=== PATIENT | male | born 1950 | race Caucasian/White ===

== ENCOUNTER 2018-06-01 13:49 | Inpatient (IN) | payer MEDICARE, BC ==
[2018-06-01] MEDS ORDERED: Lorazepam 2 MG/ML VIAL ONE (14:57)
--- NOTE | 2018-06-01 16:24 | CON ---
DATE OF CONSULTATION: 06/01/2018 CHIEF COMPLAINT: Left lower quadrant pain. HISTORY OF PRESENT ILLNESS: This is a 67-year-old transferred from [facility] emergency room with pain in his left lower quadrant, found to have diverticulitis with a small area of perforation and ab scess. His pain is actually improved after IV pain medicine. We do not have the CT for review here was done at an outside institution. Denies known history of diverticulitis. He has had previous nor mal colonoscopies. No family history of colon cancer. PAST MEDICAL HISTORY: Coronary artery disease, hypertension. PAST SURGICAL HISTORY: Cyst on back. MEDICINES: Carvedilol, Plavix, statin, magnesium. ALLERGIES: SULFA. SOCIAL HISTORY: No smoking, alcohol or other drugs. REVIEW OF SYSTEMS: Ten system review of systems is otherwise negative as described above. PHYSICAL EXAMINATION: VITAL SIGNS: Pulse is 80, blood pressure is 135/86, respirations are 12. He is afebrile. HEENT: Sclerae are anicteric. Oropharynx clear. NECK: No lymphadenopathy. CHEST: Clear. HEART: Regular rate and rhythm. ABDOMEN: Soft, tender in the left lower quadrant, localized guarding, no rebound, no abdominal or in guinal hernias. EXTREMITIES: No ischemia or edema to extremities. LABORATORY AND X-RAY FINDINGS: Labs reviewed from outside institution, CT scan, we have the report o nly which says that there is inflammatory change in the left lower quadrant consistent with diverticu litis. There is a 2-cm abscess to the left. No significant free air. ASSESSMENT: Diverticulitis with localized rupture without diffuse peritonitis. PLAN: Admit, IV antibiotics. We will follow with you.
[2018-06-01] MEDS ORDERED: Acetaminophen 1,000 MG in Premix Bag 1 BAG IVPB PRN (17:58)
[2018-06-01] MEDS ORDERED: hydrALAZINE 20 MG/ML VIAL SLOW IVP PRN (17:58)
[2018-06-01] MEDS ORDERED: Morphine 10 MG/ML VIAL SLOW IVP PRN (17:58)
[2018-06-01] MEDS ORDERED: Promethazine HCl 25 MG/ML VIAL IM PRN (17:58)
[2018-06-01] MEDS ORDERED: Dextrose 5% in Water 1,000 ML IV PRN (17:58)
[2018-06-01] MEDS ORDERED: Dextrose 50% Abboject 50 ML SYRINGE SLOW IVP PRN (17:58)
[2018-06-01] MEDS ORDERED: Ondansetron PF 4 MG/2 ML Vial IVP PRN (17:58)
[2018-06-01] MEDS ORDERED: Piperacillin/Tazobactam 4.5 GM in Sodium Chloride 0.9% 100 ML IVPB SCH (18:00)
--- NOTE | 2018-06-01 18:22 | HP ---
PRIMARY CARE PROVIDER: Dr. Angel Khan in [place]. CHIEF COMPLAINT: Abdominal pain. HISTORY OF PRESENT ILLNESS: Mr. Regla Marks is a pleasant 67-year-old gentleman who was seen at [facility] on 06/01/2018. In December and January, he underwent cataract surgery. Following the surgery, he was found to have atrial fibrillation. He had a Holter monitor followed by echocardiography through Dr. Buckley's office. He underwent PCI with stent on 04/12/2018. He reports that he has known diverticulosis. He undergoes colonoscopy every 2 years because of daren porter family history of colon cancer. He returned from hunting trip about 5 days ago. He felt like he pulled a muscle in his belly 4 days ago, he felt was 2 days ago and went to the emergency room. There, he was diagnosed with diverticuli tis. He was started on oral antibiotics and discharged home. He was advised to return to the emerge ncy room if he had any fevers. Today morning, he woke up with a fever. He presented to the emergenc y room at [place] again. From there, he was transferred to [facility]. PAST MEDICAL HISTORY: Gastroesophageal reflux disease, atrial fibrillation, dyslipidemia, and morrow ry artery disease. PAST SURGICAL HISTORY: PCI with XIENCE Yaquelin stent and cyst removal from neck. SOCIAL HISTORY: Occasional alcohol use, no recreational drug use or tobacco use. FAMILY HISTORY: Colon cancer in paternal grandfather, liver cancer in mother and stomach and colon c ancer in father. ALLERGIES: BUTALBITAL and SULFA. CURRENT MEDICATIONS: Aspirin 81 mg daily, Coreg 3.125 mg 2 times a day, Plavix 75 mg daily, pravasta tin 40 mg daily and nitroglycerin p.r.n. PHYSICAL EXAMINATION: GENERAL: Mr. Arauz is awake and alert, not in acute distress. VITAL SIGNS: Blood pressure is 143/80, pulse 75, respiratory rate 18, and oxygen saturation 97% on r oom air. Temperature is 99.4 degrees Fahrenheit. EYES: No scleral icterus. No conjunctival pallor. ENT: Moist mucosal membranes, no oropharyngeal erythema or exudate. NECK: Supple, nontender, trachea is midline. RESPIRATORY: Accessory muscles of breathing are not active. Chest wall movements are symmetric bila terally. LUNGS: Clear to auscultation without wheeze, rhonchi or crepitations. CARDIOVASCULAR: S1 and S2 are heard, regular. Peripheral pulses are palpable. No carotid bruit, no pericardial rub. ABDOMEN: Soft, mild left lower quadrant tenderness, no guarding or rigidity, bowel sounds are heard. NEUROLOGIC: Cranial nerves II-XII are intact. Deep tendon reflexes are 2+. MUSCULOSKELETAL: Power is 5/5 in all 4 extremities. SKIN: No rashes or subcutaneous nodules. LYMPHATIC: No cervical lymphadenopathy. PSYCHIATRIC: Normal mood, normal affect, patient is oriented to person, place, and time. LABORATORY DATA: Mr. Regla Marks's labs and investigations were reviewed. He had CT scan of the abdo men and pelvis with contrast at [place], which showed severe sigmoid diverticulitis with marked wall thickening and pericolonic fat stranding. He has a 2-cm diverticular abscess to the left of the sig moid colon. He also has bilateral renal cysts, likely benign and small bilobed cyst in the head of t he pancreas with mild prominence of the main pancreatic duct. Radiologist recommends further evaluat ion with CT or MRI of the pancreas with pancreatic mass protocol. He has normal sodium, normal potas sium, normal blood urea nitrogen, normal creatinine, unremarkable liver profile except for elevated t otal bilirubin of 1.50, normal lipase, normal white count, normal hemoglobin and normal platelet coun t. ASSESSMENT AND PLAN: Mr. Regla Marks is a pleasant 67-year-old gentleman who was seen at [facility] on 06/01/2018. His problem list includes: 1. Diverticulitis: Mr. Regla Marks is presenting with diverticulitis as well as diverticular abscess . He will be admitted to the hospital for further management. He is being started on Zosyn. [facility] Surgery Service is being consulted for opinion and help with management. 2. Coronary artery disease. We will continue aspirin and Plavix. 3. Hypertension: We will monitor vital signs and titrate antihypertensives as needed. 4. Dyslipidemia: Continue statin. Many thanks for allowing me to participate in your patient's care. Please feel free to contact me wi th any questions or concerns. LEVEL OF RISK: Moderate. LEVEL OF COMPLEXITY: Moderate.
[2018-06-01] MEDS: Piperacillin/Tazobactam 3.375 GM in Sodium Chloride 0.9% 100 ML IVPB SCH (19:05)
[2018-06-01] MEDS: D5 1/2 NS w/20 mEq KCL 1,000 ML IV SCH (19:05)
[2018-06-01] MEDS: Sodium Chloride 0.9% 1,000 ML IV SCH (19:13)
[2018-06-01 20:13] VITALS: BMI 29.4
[2018-06-01] MEDS ORDERED: Carvedilol 3.125 MG TAB PO SCH (20:30)
[2018-06-01] MEDS: Famotidine 20 MG TAB PO SCH (20:44)
[2018-06-01] MEDS: Aspirin 81 mg Enteric Coated Tablet PO SCH (20:44)
[2018-06-01] MEDS: Clopidogrel Bisulfate 75 MG TAB PO SCH (20:44)
[2018-06-01] MEDS: Pravastatin Sodium 40 MG TAB PO SCH (20:45)
[2018-06-01] MEDS: Famotidine/PF 20 mg/2ml Vial SLOW IVP SCH (20:46)
[2018-06-02] MEDS: Piperacillin/Tazobactam 3.375 GM in Sodium Chloride 0.9% 100 ML IVPB SCH ×4 (00:25→18:43)
[2018-06-02] MEDS: Sodium Chloride 0.9% 1,000 ML IV SCH (02:07)
[2018-06-02 04:12] LABS: #Basophils 0.1 thou/uL (0.0-0.2); #Eosinphils 0.3 thou/uL (0.0-0.7); #Lymphocytes 0.9 thou/uL (1.20-3.40); #Monocytes 0.5 thou/uL (0.11-0.59); #Neutrophils 3.6 thou/uL (1.40-6.50); %Basophils 1.4 % (0.0-1.0); %Eosinophils 4.9 % (0.0-10.0); %Neutrophils 66.8 % (42.0-75.0); Hemoglobin 12.3 g/dL (14.0-18.0); Mean Corpuscular HGB CONC 32.3 g/dL (32.0-36.0); Mean Corpuscular Hemoglobin 30.1 pg (27.0-31.0); Mean Corpuscular Volume 93.3 fL (78.0-98.0); Mean Platelet Volume 6.9 fL (7.4-10.4); Platelet Count 204 thou/uL (130-400); Red Blood Cell (RBC) Count 4.09 mill/uL (4.70-6.10); White Blood Cell (WBC) Count 5.4 thou/uL (4.8-10.8)
[2018-06-02 04:32] LABS: Anion Gap 6 mmol/L (10-20); BUN (Urea Nitrogen) 11 mg/dL (8.4-25.7); Calc. Creatinine Clearance 88 mL/min (70-130); Calcium 9.6 mg/dL (7.8-10.44); Carbon Dioxide 31 mmol/L (23-31); Chloride 105 mmol/L (98-107); Estimated GFR-MDRD 67; Glucose 110 mg/dL (80-115); Potassium 4.1 mmol/L (3.5-5.1); Sodium 138 mmol/L (136-145)
[2018-06-02] MEDS: D5 1/2 NS w/20 mEq KCL 1,000 ML IV SCH ×2 (05:14→18:44)
[2018-06-02] MEDS ORDERED: Aspirin 81 mg Enteric Coated Tablet PO SCH (09:00)
[2018-06-02] MEDS ORDERED: Clopidogrel Bisulfate 75 MG TAB PO SCH (09:00)
[2018-06-02] MEDS: Famotidine 20 MG TAB PO SCH ×2 (09:55→20:32)
[2018-06-02] MEDS: Carvedilol 3.125 MG TAB PO SCH ×2 (09:56→17:30)
[2018-06-02] MEDS: Famotidine/PF 20 mg/2ml Vial SLOW IVP SCH ×2 (09:56→20:33)
[2018-06-02] MEDS: Enoxaparin Sodium 40 MG/0.4 ML SYRINGE SC SCH (09:56)
--- NOTE | 2018-06-02 14:26 | PDOC.PN ---
- Subjective Encounter Start Date: 06/02/18 Encounter Start Time: 10:30 Subjective: pt up in bed no complains feels well. tolerating cl - Objective Resuscitation Status: Resuscitation Status FULL:Full Resuscitation Vital Signs & Weight: Vital Signs (12 hours) Temp Pulse Resp BP BP Pulse Ox 06/02/18 11:47 98.1 F 54 L 18 109/71 92 L 06/02/18 08:00 98.4 F 73 18 138/78 97 06/02/18 04:43 98.0 F 60 18 113/67 95 Weight Weight 210 lb 12.8 oz Result Diagrams: 06/02/18 03:33 06/02/18 03:33 Phys Exam - Physical Examination Neck: no nodes, no JVD, supple, full ROM Respiratory: no wheezing, no rales, no rhonchi, wheezing present, clear to auscultation bilateral Cardiovascular: RRR, no significant murmur, no rub, gallop, irregular Gastrointestinal: soft, non-tender, no distention, positive bowel sounds Musculoskeletal: no edema, pulses present, edema present Dx/Plan (1) Diverticulitis of intestine with abscess Code(s): K57.80 - DVTRCLI OF INTEST, PART UNSP, W PERF AND ABSCESS W/O BLEED Status: Acute (2) CAD (coronary artery disease) Code(s): I25.10 - ATHSCL HEART DISEASE OF [place] CORONARY ARTERY W/O ANG PCTRS Status: Acute - Plan pt had ROSSANA to mid LAD on 04/12/2018 would continue ASA/plavix for now -: will continue abx. He is feeling well and tolerating clears. * . Review of Systems - Review of Systems ENT: negative: Ear Pain, Ear Discharge, Nose Pain, Nose Discharge, Nose Congestion, Mouth Pain, Mouth Swelling, Throat Pain, Throat Swelling, Other Respiratory: negative: Cough, Dry, Shortness of Breath, Hemoptysis, SOB with Excertion, Pleuritic Pain, Sputum, Wheezing Cardiovascular: negative: chest pain, palpitations, orthopnea, paroxysmal nocturnal dyspnea, edema, light headedness, other Gastrointestinal: negative: Nausea, Vomiting, Abdominal Pain, Diarrhea, Constipation, Melena, Hematochezia, Other - Medications/Allergies Allergies/Adverse Reactions: Allergies Allergy/AdvReac Type Severity Reaction Status Date / Time butalbital Allergy Hives Verified 02/24/17 12:34 Sulfa (Sulfonamide Allergy Hives Verified 02/24/17 12:34 Antibiotics) Medications: Current Medications Albuterol/Ipratropium (Duoneb) 3 ml NEB Q4H PRN PRN Reason: Wheezing Aspirin (Ecotrin) 81 mg PO HS [facility] Last Admin: 06/01/18 20:44 Dose: Not Given Carvedilol (Coreg) 3.125 mg PO BID-[facility] Last Admin: 06/02/18 09:56 Dose: 3.125 mg Clopidogrel Bisulfate (Plavix) 75 mg PO [facility] Last Admin: 06/01/18 20:44 Dose: Not Given Dextrose/Water (Dextrose 50%) 25 gm SLOW IVP PRN PRN PRN Reason: Hypoglycemia Enoxaparin Sodium (Lovenox) 40 mg SC 0900 [facility] Last Admin: 06/02/18 09:56 Dose: 40 mg Famotidine (Pepcid) 20 mg PO Q12HR [facility] Last Admin: 06/02/18 09:55 Dose: 20 mg Famotidine (Pepcid) 20 mg SLOW IVP Q12HR [facility] Last Admin: 06/02/18 09:56 Dose: Not Given Glucagon (Glucagon) 1 mg IM PRN PRN PRN Reason: Hypoglycemia Hydralazine HCl (Apresoline) 10 mg SLOW IVP Q4H PRN PRN Reason: SBP > 170 or DBP > 100 Acetaminophen 1,000 mg/ Device 100 mls @ 400 mls/hr IVPB Q6H PRN PRN Reason: Fever/Mild Pain Stop: 06/02/18 17:59 Last Admin: 06/01/18 19:12 Dose: 100 mls Potassium Chloride/Dextrose/Sod Cl (D5 1/2 Ns W/20 Meq Kcl) 1,000 mls @ 100 mls /hr IV .Q10H [facility] Last Admin: 06/02/18 05:14 Dose: 1,000 mls Dextrose/Water (D5w) 1,000 mls @ 0 mls/hr IV .Q0M PRN PRN Reason: Hypoglycemia Piperacillin Sod/Tazobactam (Sod 3.375 gm/ Sodium Chloride) 100 mls @ 200 mls/ hr IVPB Q6HR [facility] Last Admin: 06/02/18 05:14 Dose: 100 mls Morphine Sulfate (Morphine) 2 mg SLOW IVP Q2H PRN PRN Reason: Moderate Pain (4-6) Morphine Sulfate (Morphine) 4 mg SLOW IVP Q2H PRN PRN Reason: Severe Pain (7-10) Ondansetron HCl (Zofran) 4 mg IVP Q6H PRN PRN Reason: Nausea/Vomiting Pravastatin Sodium (Pravachol) 40 mg PO HS [facility] Last Admin: 06/01/18 20:45 Dose: 40 mg Promethazine HCl (Phenergan) 12.5 mg IM Q4H PRN PRN Reason: Nausea/Vomiting Sodium Chloride (Flush - Normal Saline) 10 ml IVF PRN PRN PRN Reason: Saline Flush
[2018-06-02] MEDS: Clopidogrel Bisulfate 75 MG TAB PO SCH (15:40)
[2018-06-02] MEDS ORDERED: D5 1/2 NS w/20 mEq KCL 1,000 ML IV SCH (17:45)
--- NOTE | 2018-06-02 17:57 | PRG ---
DATE OF SERVICE: 06/02/2018 SUBJECTIVE: Mr. Arauz feels much better today. His pain is almost gone. He tolerated the clear li quid diet without difficulty. OBJECTIVE: VITALS: Afebrile. Vital signs are stable. ABDOMEN: Soft, nontender, nondistended, only minimal tenderness in the left lower quadrant without g uarding or rebound. LABORATORY DATA: White cell count is 5, hemoglobin 12, platelet count is 204, creatinine is 1.09. ASSESSMENT: Diverticulitis, noncomplicated, responding to Zosyn. PLAN: Continue IV antibiotics tonight. Likely discharge home tomorrow. We will advance to full liquid t. It is okay for him to take his Plavix. He is unlikely to need any surgical procedures.
--- NOTE | 2018-06-02 18:31 | CON ---
DATE OF CONSULTATION: 06/02/2018 REASON FOR CONSULTATION: Diverticulitis. HISTORY OF PRESENT ILLNESS: A 67-year-old patient who has a history of GERD, AFib, coronary artery disease, who developed pain in the left lower quadrant of the abdomen. The patient had a CT done elsewhere and it showed a 2 cm rectosigmoid fluid collection with a likely area of perforation from a diverticulum. The patient has a history of diverticulosis from colonoscopies. He is currently feeling well and is receiving Zosyn. No headaches, visual symptoms, sore throat, odynophagia, or dysphagia. The pain is improved. No vomiting. He is able to eat and drink clear fluid diet for now. Voiding without difficulty. No joint symptoms. Has not had a BM yet. No neurological symptoms. PAST MEDICAL HISTORY: GERD, diverticulosis, AFib, dyslipidemia, coronary artery disease. PAST SURGICAL HISTORY: Percutaneous coronary intervention with stent placement , cyst removal from the neck which was benign. SOCIAL HISTORY: Drinks occasionally. Never a smoker. He is retired. FAMILY HISTORY: Colon cancer, liver cancer, stomach cancer. ALLERGIES: SULFA DRUGS, BUTALBITAL. CURRENT MEDICATIONS: Acetaminophen, albuterol, aspirin, Coreg, Plavix, enoxaparin, hydralazine, Zosyn, promethazine. PHYSICAL EXAMINATION: VITAL SIGNS: Temperature 98.9, blood pressure 109/71, pulse of 54, respirations 18, O2 sat 92%-97%. SKIN: Not remarkable. Patient has a peripheral IV access and is voiding spontaneously. No lymphadenopathy. HEENT: Normal. NECK: Supple. LUNGS: With symmetric clear breath sounds. HEART: S1, S2, regular rate. No S3, S4. ABDOMEN: Soft with mild tenderness left lower quadrant. No ascites. No bladder distention, no organomegaly. EXTREMITIES: No joint inflammatory activity. His pulses are 2+ in dorsalis pedis. He moves all extremities equally. Cognitive function appears to be intact. LABORATORY DATA: White cell count 5.4, hemoglobin 12.3, platelets 204, 66% neutrophils. Chemistry was fairly remarkable. A CT scan was done elsewhere and it showed a 2 cm fluid collection in left lower quadrant associated with the sigmoid area of inflammation. ASSESSMENT: Sigmoid diverticulitis with small area of perforation with a small abscess. This represents Hinchey stage I diverticular inflammatory process. DISCUSSION: This type of early diverticulitis can be managed with oral antimicrobials in the outpatient setting, probably could be discharged tomorrow on oral Cipro and Flagyl, there is a risk of recrudescence in view of the possibility of resistant pathogens and will have to be closely monitored for the next few weeks. The likelihood of resolution is high and after that then the likelihood of recrudescence is around 13% in 12 months. If there is persistence of recrudescence of inflammatory process, then he will need to reimage the area, CT with contrast and transition to intravenous antimicrobial therapy assuming a resistant pathogen. NICK
[2018-06-02] MEDS: Pravastatin Sodium 40 MG TAB PO SCH (20:32)
[2018-06-02] MEDS: Aspirin 81 mg Enteric Coated Tablet PO SCH (20:32)
[2018-06-03] MEDS: Piperacillin/Tazobactam 3.375 GM in Sodium Chloride 0.9% 100 ML IVPB SCH ×3 (00:41→12:01)
[2018-06-03 04:43] LABS: #Eosinphils 0.3 thou/uL (0.0-0.7); #Lymphocytes 0.9 thou/uL (1.20-3.40); #Monocytes 0.3 thou/uL (0.11-0.59); #Neutrophils 2.1 thou/uL (1.40-6.50); %Basophils 0.1 % (0.0-1.0); %Eosinophils 7.1 % (0.0-10.0); %Lymphocytes 24.9 % (21.0-51.0); %Monocytes 9.6 % (0.0-10.0); %Neutrophils 58.3 % (42.0-75.0); Hemoglobin 12.3 g/dL (14.0-18.0); Mean Corpuscular HGB CONC 32.8 g/dL (32.0-36.0); Mean Corpuscular Volume 91.5 fL (78.0-98.0); Mean Platelet Volume 6.8 fL (7.4-10.4); Platelet Count 211 thou/uL (130-400); RBC Distribution Width 11.9 % (11.5-14.5); Red Blood Cell (RBC) Count 4.08 mill/uL (4.70-6.10); White Blood Cell (WBC) Count 3.6 thou/uL (4.8-10.8)
[2018-06-03 04:52] LABS: Anion Gap 10 mmol/L (10-20); BUN (Urea Nitrogen) 7 mg/dL (8.4-25.7); Calc. Creatinine Clearance 88 mL/min (70-130); Calcium 9.7 mg/dL (7.8-10.44); Carbon Dioxide 26 mmol/L (23-31); Chloride 109 mmol/L (98-107); Estimated GFR-MDRD 67; Glucose 102 mg/dL (80-115); Potassium 3.9 mmol/L (3.5-5.1); Sodium 141 mmol/L (136-145)
[2018-06-03] MEDS: Enoxaparin Sodium 40 MG/0.4 ML SYRINGE SC SCH (07:55)
[2018-06-03] MEDS: Carvedilol 3.125 MG TAB PO SCH (07:55)
[2018-06-03] MEDS: Famotidine/PF 20 mg/2ml Vial SLOW IVP SCH (07:56)
[2018-06-03] MEDS: Famotidine 20 MG TAB PO SCH (07:57)
[2018-06-03] MEDS ORDERED: Clopidogrel Bisulfate 75 MG TAB PO SCH (09:00)
--- NOTE | 2018-06-03 14:35 | PRG ---
DATE OF SERVICE: 06/03/2018 SUBJECTIVE: Mr. Arauz is doing well. He is tolerating the full liquids. No fevers. He has minima l abdominal pain. PHYSICAL EXAMINATION: VITAL SIGNS: He is afebrile. Vital signs are stable. ABDOMEN: Soft, minimally tender in the left lower quadrant. Dr. Patterson saw him and recommended conversion to outpatient care. ASSESSMENT: Acute diverticulitis, localized rupture, but contained, even small abscess on sigmoid co abelino, but clinically better. PLAN: Home on Cipro and Flagyl. Follow up with me in 2 weeks.
[2018-06-03 15:58] VITALS: BP 130/86; TEMP 97.8
--- NOTE | 2018-06-03 22:31 | DIS ---
DATE OF ADMISSION: 06/01/2018 DATE OF DISCHARGE: 06/03/2018 DISCHARGE DIAGNOSES: As of the followin. Diverticulitis with intestinal wall abscess. 2. Coronary artery disease. HOSPITAL COURSE: The patient is a very pleasant 67-year-old male who initially presented to the [facility] on 06/01/2018 with complaints of fever and chills. The patient, a few days prior to that, was d iagnosed with diverticulitis and was put on oral antibiotics and was told to come in to the hospital if he starts having fevers. The patient had a CT scan done at [place], which indicated a severe sig moid diverticulitis with marked wall thickening of pericolonic fat strand and had a 2 cm diverticular abscess to the left of the sigmoid colon. I do not actually have the CT scan with me, this is throu gh his previous H&P. The patient was seen by Surgery and patient was treated with IV antibiotics and initially he was placed on n.p.o. and was given gentle hydration. The patient continued to improve. He was not taken to surgery. No surgery was indicated. The patient has been doing well. He had a bowel movement. His diet will be increased to a soft diet and also he will take oral antibiotics wi th Cipro and Flagyl for 10 days. He will follow up with Surgery as outpatient. The patient has been seen and examined today. No changes from previous examination. DISCHARGE MEDICATIONS: The patient's medications will be as of the following: He is going to contin ue his aspirin in the morning or in the evening and Plavix, carvedilol 3.125 b.i.d., omeprazole 20 mg daily, pravastatin 40 mg daily, Cipro 500 mg b.i.d. and Flagyl 500 mg q.8 hours. FOLLOWUP: Again, he will follow up with his primary care doctor and also with Surgery as outpatient. He was also seen by Dr. Patterson, Infectious Disease, who recommended to transition to Cipro, Flagyl, and also follow up with Surgery for reimaging to make sure that has resolved.
== END 2018-06-03 17:13 | disposition home or self-care (01) | DRG 392 ==
LOC: ERS 13:49 → ERHOLD 15:38 → T4-B 17:55
PROVIDERS: ADMIT Internal Medicine; ATTEND Internal Medicine
DX: K57.20 Diverticulitis of large intestine with perforation and abscess without bleeding (principal); I25.10 Atherosclerotic heart disease of native coronary artery without angina pectoris; I48.91 Unspecified atrial fibrillation; K21.9 Gastro-esophageal reflux disease without esophagitis; E78.5 Hyperlipidemia, unspecified; Z95.5 Presence of coronary angioplasty implant and graft; Z80.0 Family history of malignant neoplasm of digestive organs; Z79.02 Long term (current) use of antithrombotics/antiplatelets; Z79.82 Long term (current) use of aspirin; Z88.2 Allergy status to sulfonamides; Z88.8 Allergy status to other drugs, medicaments and biological substances
CPT/HCPCS: 36415; 80048; 85025; 87040; 96374; J0131; J1650; J2060; J2543; J7050; S0028

== ENCOUNTER 2018-08-13 14:54 | Observation (INO) | payer MEDICARE, BC ==
[2018-08-13 16:26] LABS: #Eosinphils 0.2 thou/uL (0.0-0.7); #Lymphocytes 1.1 thou/uL (1.20-3.40); #Monocytes 0.5 thou/uL (0.11-0.59); #Neutrophils 5.7 thou/uL (1.40-6.50); %Basophils 0.4 % (0.0-1.0); %Eosinophils 2.5 % (0.0-10.0); %Lymphocytes 14.5 % (21.0-51.0); %Monocytes 6.4 % (0.0-10.0); %Neutrophils 76.1 % (42.0-75.0); Hemoglobin 13.7 g/dL (14.0-18.0); Mean Corpuscular HGB CONC 33.3 g/dL (32.0-36.0); Mean Corpuscular Hemoglobin 30.3 pg (27.0-31.0); Mean Platelet Volume 7.2 fL (7.4-10.4); Platelet Count 218 thou/uL (130-400); RBC Distribution Width 12.5 % (11.5-14.5); Red Blood Cell (RBC) Count 4.54 mill/uL (4.70-6.10); White Blood Cell (WBC) Count 7.4 thou/uL (4.8-10.8)
[2018-08-13 16:36] LABS: PTT 28.6 SEC (22.9-36.1); Prothrombin Time 13.3 SEC (12.0-14.7)
[2018-08-13 16:47] LABS: ALT (SGPT) 19 U/L (8-55); AST (SGOT) 17 U/L (5-34); Albumin 4.2 g/dL (3.4-4.8); Alkaline Phosphatase 42 U/L (40-150); Anion Gap 12 mmol/L (10-20); BUN (Urea Nitrogen) 15 mg/dL (8.4-25.7); Bilirubin, Total 0.8 mg/dL (0.2-1.2); Calc. Creatinine Clearance 0 mL/min (70-130); Carbon Dioxide 22 mmol/L (23-31); Chloride 109 mmol/L (98-107); Estimated GFR-MDRD 67; Globulin 2.3 g/dL (2.4-3.5); Glucose 117 mg/dL (80-115); Protein, Total 6.5 g/dL (5.8-8.1); Sodium 139 mmol/L (136-145)
[2018-08-13] MEDS ORDERED: Lactated Ringer's 1,000 ML IV SCH ×2 (19:30→20:49)
[2018-08-13 19:47] LABS: Hemoglobin 12.9 g/dL (14.0-18.0); Platelet Count 203 thou/uL (130-400)
[2018-08-13] MEDS ORDERED: Acetaminophen 325 MG TAB PO PRN (21:00)
[2018-08-13] MEDS ORDERED: Nitroglycerin 0.4 MG TAB (25 Tab Bottle) SL PRN (21:02)
[2018-08-13] MEDS ORDERED: Polyethylene Glycol 3350 17 GM Packet PO SCH (21:15)
[2018-08-13] MEDS ORDERED: Pravastatin Sodium 40 MG TAB PO SCH (21:15)
--- NOTE | 2018-08-13 21:35 | HP ---
PRIMARY CARE PROVIDERS: Dr. Khan in [place]. CHIEF COMPLAINT: Bright red blood per rectum. HISTORY OF PRESENT ILLNESS: This is a 67-year-old male on dual anti-platelet therapy with history of cardiac stent in March 2018, hospitalization here for diverticulitis and intestinal wall abscess in May 2018, dyslipidemia, and GERD, who presents to the emergency room with a complaint of bright red blood per rectum. The patient reports history of constipation, and he took a dose of MiraLAX yesterday to help with this. Today around 9:00 or 10:00 am, he had a hard bowel movement, followed up around 2:00 pm with passing bright red blood in addition to stool. He had 2 episodes at home, then presented to the emergency room. Since that time, he has had 4 further episodes of grossly bloody stool in the emergency room and 1 on the floor. He denies any prior history of this, denies any pain, denies any fevers or chills, denies any bleeding from any other location. His last bowel movement was 2 days prior and he reports they tend to be hard. He has used MiraLAX approximately 4 times over the prior 3 weeks. He reports that the diverticulitis and abscess have completely resolved. His last colonoscopy was in October of 2017, and he reports these are done every 2 years due to a family history of colon cancer as well as polyps. The patient denies any lightheadedness or dizziness, denies any precipitating or relieving factors. He does note that the time interval has been increasing between passing of bloody stools. In the emergency room, the patient was started on lactated Ringer's and hospitalist called for admission. ALLERGIES: ALLERGIES TO MEDICINE ARE BUTALBITAL AND SULFA. CURRENT MEDICATIONS: Reconciled with the patient. 1. Aspirin 81 mg daily. 2. Carvedilol 3.125 mg b.i.d. 3. Plavix 75 mg daily. 4. Pravastatin 40 mg at bedtime. 5. Nitroglycerin 0.4 mg as needed. PAST MEDICAL HISTORY: 1. Coronary artery disease with stent placement in March of 2018. 2. Diverticulitis and intestinal wall abscess with hospitalization in May 2018, here. 3. GERD. 4. Dyslipidemia. PAST SURGICAL HISTORY: 1. Coronary artery stent in March 2018. The patient reports need for dual anti-platelet therapy for one year. 2. Cyst removal from his neck. SOCIAL HISTORY: He lives with his , Telma, who is his surrogate decision maker. Denies tobacco and rarely uses alcohol. He is a full code. FAMILY HISTORY: Significant for colon cancer, liver cancer, and stomach and colon cancer. REVIEW OF SYSTEMS: Negative for fevers, chills, nausea, vomiting, abdominal pain, rectal pain, lightheadedness, dizziness, chest pain, or other bleeding problems. All remaining review of systems are reviewed and negative. PHYSICAL EXAMINATION: VITAL SIGNS: Blood pressure 117/72, pulse 55, temp 98.1, respirations 15, sats 95% on room air. GENERAL: Awake, alert, responsive, in no apparent distress. Able to speak in full sentences. HEENT: Pupils are equal and round. Oral mucosa is pink and moist. NECK: Supple, nontender. LYMPHATICS: No palpable cervical or supraclavicular lymphadenopathy. LUNGS: Clear to auscultation bilateral. No audible wheezing, rhonchi, or rales. HEART: Normal S1, S2. Regular rate and rhythm. No audible murmurs. ABDOMEN: Soft, present bowel sounds. Nontender, nondistended. EXTREMITIES: No clubbing, cyanosis, or edema. NEURO: No gross deficits. PSYCH: Euthymic, good eye contact. Appears stated age. SKIN: No visible rashes. LABORATORY DATA: Reviewed. CBC; 7.4, 13.7, 41.3, 218 at 16:05 and 3 hours later, hemoglobin 12.9. His INR 1.0. Chemistry; 139, 4.0, 109, 22, 15, 1.1, 117. LFTs normal. IMPRESSION: 1. Bright red blood per rectum in a patient with known diverticula, as well as constipation. Differential diagnosis includes internal hemorrhoids as well as diverticular bleed. 2. Anemia secondary to above 3. Coronary artery disease with recent stent placement, on dual anti-platelet therapy. 4. Dyslipidemia. 5. Gastroesophageal reflux disease. PLAN: 1. Observation status in the hospital. 2. Serial monitoring of H and H as well as monitoring for symptoms and the amount of blood being passed. 3. We will do another dose of MiraLAX with the goal of soft stools, and have on a clear liquid diet. GI consultation in the morning. 4. Temporarily hold aspirin and Plavix due to the active bleeding. 5. Continue carvedilol with hold parameters as well as pravastatin. 6. Transfusion consent. The patient is agreeable to emergency blood transfusion if needed and he has been typed and screened. 7. Anticipated length of stay will be based on hemodynamic stability, evolution of the bleeding, and any other hospital events. Anticipate he will be here for a minimum of 24 hours, and possibly longer. 8. DVT prophylaxis. The patient is ambulatory. 9. GI prophylaxis, not indicated. 10. Code status is full. 11. Surrogate decision maker is his . 12. The patient is at high risk given age comorbidities and current presentation. 13. Reviewed the plan of care with the patient. No questions or further needs at the end of evaluation. Job ID: [id number] MTDD
[2018-08-13 21:48] VITALS: BMI 28.7
--- NOTE | 2018-08-13 23:27 | PDOC.EVN ---
Event Note - Event Note Event Note: RN called - SBP in 90s. Will increase IVF.
[2018-08-13] MEDS: Lactated Ringer's 1,000 ML IV SCH (23:38)
[2018-08-14 01:25] LABS: Hemoglobin 11.1 g/dL (14.0-18.0); Platelet Count 186 thou/uL (130-400)
[2018-08-14] MEDS: Lactated Ringer's 1,000 ML IV SCH (03:25)
[2018-08-14 08:44] LABS: Hemoglobin 11.6 g/dL (14.0-18.0); Platelet Count 204 thou/uL (130-400)
[2018-08-14 08:57] LABS: Anion Gap 8 mmol/L (10-20); BUN (Urea Nitrogen) 13 mg/dL (8.4-25.7); Calc. Creatinine Clearance 98 mL/min (70-130); Carbon Dioxide 28 mmol/L (23-31); Chloride 109 mmol/L (98-107); Estimated GFR-MDRD 79; Glucose 88 mg/dL (80-115); Magnesium 2.2 mg/dL (1.6-2.6); Potassium 3.9 mmol/L (3.5-5.1); Sodium 141 mmol/L (136-145)
[2018-08-14] MEDS ORDERED: Carvedilol 3.125 MG TAB PO SCH (09:00)
[2018-08-14] MEDS ORDERED: Prevnar 13-Val Conj/PF 0.5 ML SYRINGE IM ONE (09:00)
--- NOTE | 2018-08-14 10:31 | CON ---
DATE OF CONSULTATION: 08/14/2018 This is GI inpatient consultation note. REASON FOR CONSULTATION: Lower GI bleeding. HISTORY OF PRESENT ILLNESS: Elan Arauz is a very pleasant 67-year-old gentleman with a history of coronary artery disease and stent placement fairly recently in March 2018. 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 His last colonoscopy was in October 2017. He says he had 1 small polyp removed and diverticulosis noted as well as hemorrhoids. More recently, in May 2018, he was hospitalized here with diverticulitis and imaging showing a small abscess in the sigmoid colon. This was treated conservatively with antibiotics and the symptoms all completely resolved. The patient does take aspirin and Plavix. Yesterday in the morning, he was feeling a bit constipated, having to strain to defecate. He took some MiraLAX. Shortly thereafter, he had a bowel movement with a large amount of bright red blood. This became recurrent, he had 7 episodes of bright red blood per rectum throughout the course of the day yesterday. There was really no associated abdominal discomfort with this, just feeling of gassiness in the lower abdomen. No nausea or vomiting. He did start getting a bit lightheaded and so presented for evaluation. He has remained hemodynamically stable since admission last night. His hemoglobin was initially 13.7 and did drop to 11.1 yesterday evening, but repeat hemoglobin this morning shows stabilization to 11.6. His last bloody bowel movement was about 10 hours ago at 11 p.m. last night. He is otherwise feeling very well. REVIEW OF SYSTEMS: Full review of systems including constitutional, head, eyes, ears, nose, throat, GI, , cardiovascular, respiratory, musculoskeletal, and neurologic systems are negative except as noted in the HPI. PAST MEDICAL HISTORY: 1. Coronary artery disease with stent placement in March 2018. 2. Diverticulitis with small sigmoid abscess in May 2018, managed conservatively with antibiotics and symptom resolution. 3. GERD. 4. Hyperlipidemia. 5. Cyst removal from his neck. ALLERGIES: BUTALBITAL AND SULFA. OUTPATIENT MEDICATIONS: 1. Aspirin 81 mg daily. 2. Carvedilol 3.125 mg b.i.d. 3. Plavix 75 mg daily. 4. Pravastatin 40 mg at bedtime. 5. Nitroglycerin 0.4 mg as needed. SOCIAL HISTORY: The patient lives with his . Alcohol use is rare. No tobacco abuse. FAMILY HISTORY: Significant for colon cancer in his paternal grandfather, stomach and lung cancer in his father, and liver cancer in his mother. PHYSICAL EXAMINATION: VITAL SIGNS: Temperature 98.2, pulse 58, blood pressure 112/67, and 93% oxygen saturation on room air. GENERAL: A 67-year-old man sitting up in bed comfortably, in no distress. SKIN: No jaundice. No rashes were palpable. EYES: No scleral icterus. Extraocular movements intact. ENT: Mucous membranes moist. No oral lesions. LYMPH: No submandibular or supraclavicular lymphadenopathy. THYROID: Nontender to palpation. HEART: Regular rate and rhythm. LUNGS: Clear to auscultation bilaterally. ABDOMEN: Bowel sounds present. Soft and nontender to palpation throughout. No masses or organomegaly appreciated. EXTREMITIES: No peripheral edema. VESSELS: Radial pulses 2+ bilaterally NEUROLOGIC: Cranial nerves 2 through 12 intact bilaterally. No focal deficits. LABORATORY STUDIES: Hemoglobin initially 13.7, dropped to 11.1, but now stabilized at 11.6; hematocrit is 34.9; WBC 7.4; and platelets 204. INR 1.0. Sodium 141, potassium 3.9, BUN 13, and creatinine 0.95. LFTs all normal with total bilirubin 0.8, alkaline phosphatase 42, AST 17, ALT 19, and albumin 4.2. ASSESSMENT AND PLAN: 1. Lower gastrointestinal bleeding, likely diverticular in origin, appears to have resolved this morning. 2. Acute blood loss anemia, stabilized out on this morning's lab draw. 3. Coronary artery disease with recent stent placement on dual anti-platelet therapy with aspirin and Plavix. I had a long discussion with the patient and his regarding this presentation, it seems most consistent with a likely self-limited diverticular bleed. It has been about 10 hours since his last bloody stool and his hemoglobin is stabilized this morning. I do expect his next few bowel movements will still have some old blood. Also, consider possibility of hemorrhoidal bleeding, but this really seems like too much blood for that. He has had colonoscopies frequently including 1 within the past year, so other sources are far less likely. Given his clinical stability and the fact that it seems his bleed has resolved, I think we have options here. Our plan will be to recheck his H and H early this afternoon to assure continued stability, see how he does over the next several hours and assure no evidence of recurrent overt bleeding. If he is doing well this afternoon and it appears the bleeding has not recurred, I think he could actually be safely discharged from the hospital, back on his aspirin and Plavix. If we are concerned about possible persistent bleeding this afternoon, then I would keep him overnight 1 more night with bowel preparation and colonoscopy tomorrow. We will reassess this afternoon. Thank you for the consultation. Please call back anytime with questions or concerns. Job ID: [id number]
--- NOTE | 2018-08-14 11:02 | PDOC.PN ---
- Subjective Encounter Start Date: 08/14/18 (f/u GI bleed) Encounter Start Time: 11:00 Subjective: Pt lightheaded overnight with low blood pressure. Denies any sx now -: some lower abd tenderness, denies n/v. - Objective Resuscitation Status - Order Detail: 08/13/18 21:00 Resuscitation Status Routine Resuscitation Status: FULL: Full Resuscitation Vital Signs & Weight: Vital Signs (12 hours) Temp Pulse Resp BP BP BP BP 08/14/18 07:43 98.2 F 58 L 16 112/67 105/61 98/53 L 08/14/18 04:19 98.3 F 53 L 16 103/64 08/14/18 02:09 90 82/40 L 08/14/18 02:08 80 105/55 L 08/14/18 02:07 98.1 F 65 16 107/69 08/13/18 23:28 68 115/64 08/13/18 23:12 98.0 F 73 16 90/52 L Pulse Ox 08/14/18 07:43 93 L 08/14/18 04:19 96 08/14/18 02:09 96 08/14/18 02:08 95 08/14/18 02:07 93 L 08/13/18 23:28 08/13/18 23:12 97 Weight Weight 205 lb 11.2 oz I&O: 08/13/18 08/14/18 08/15/18 06:59 06:59 06:59 Intake Total 2160 Output Total 500 Balance 2160 -500 Result Diagrams: 08/14/18 07:51 08/14/18 07:51 Phys Exam - Physical Examination Constitutional: NAD Respiratory: no wheezing, no rales, no rhonchi, clear to auscultation bilateral Cardiovascular: RRR, no significant murmur Gastrointestinal: soft, non-tender, no distention, positive bowel sounds Musculoskeletal: no edema Neurological: non-focal, moves all 4 limbs Skin: no rash Dx/Plan (1) Lower GI bleed Code(s): K92.2 - GASTROINTESTINAL HEMORRHAGE, UNSPECIFIED Status: Acute (2) Diverticulosis Code(s): K57.90 - DVRTCLOS OF INTEST, PART UNSP, W/O PERF OR ABSCESS W/O BLEED Status: Acute Qualifiers: Diverticulosis bleeding: diverticulosis with bleeding (3) Anemia Code(s): D64.9 - ANEMIA, UNSPECIFIED Status: Acute Qualifiers: Other causes of anemia: acute posthemorrhagic (4) Dyslipidemia Code(s): E78.5 - HYPERLIPIDEMIA, UNSPECIFIED Status: Chronic (5) GERD (gastroesophageal reflux disease) Code(s): K21.9 - GASTRO-ESOPHAGEAL REFLUX DISEASE WITHOUT ESOPHAGITIS Status: Chronic Qualifiers: Esophagitis presence: esophagitis presence not specified Qualified Code(s) : K21.9 - Gastro-esophageal reflux disease without esophagitis (6) CAD (coronary artery disease) Code(s): I25.10 - ATHSCL HEART DISEASE OF [place] CORONARY ARTERY W/O ANG PCTRS Status: Acute - Plan * Overall doing well - no BM's this morning - advance to full liquid diet * Appreciate GI evaluation - recheck Hb this afternoon and monitor for further bm's * d/c IVF and check orthostatics this afternoon * cont hold parameters with carvedilol * * if no further bleeding, pt feeling well and bp normal - anticipate d/c to home this afternoon * * dvt prophy - scd's * gi prophy - not indicated * code status full * * reviewed plan of care wiht pt/, no questions or further needs at end of eval * pt remains at high risk in current condition.
[2018-08-14 13:19] VITALS: TEMP 97.7
[2018-08-14 13:31] VITALS: BP 111/63
[2018-08-14 14:18] LABS: Hemoglobin 11.3 g/dL (14.0-18.0); Platelet Count 193 thou/uL (130-400)
[2018-08-14] MEDS ORDERED: Pravastatin Sodium 40 MG TAB PO SCH (21:00)
--- NOTE | 2018-08-15 07:23 | DIS ---
DATE OF ADMISSION: 08/13/2018 DATE OF DISCHARGE: 08/14/2018 CONSULTANTS: Dr. Lin of Gastroenterology. MEDICATIONS: Medications are reconciled at discharge and unchanged compared to admission. 1. Aspirin 81 mg at night. 2. Carvedilol 3.125 mg b.i.d. 3. Clopidogrel 75 mg daily. 4. Pravastatin 40 mg at bedtime. 5. Nitroglycerin as needed. New medication, MiraLAX once daily for few days to ensure soft stools and then as needed. FINAL DIAGNOSIS: 1. Lower gastrointestinal bleed, likely diverticular in origin, resolved. 2. Anemia secondary to above, mild. SECONDARY DIAGNOSES: 1. Coronary artery disease with history of stent placement in March 2018. 2. History of diverticulitis and intestinal wall abscess in May 2018. 3. Gastroesophageal reflux disease. 4. Dyslipidemia. HISTORY OF PRESENT ILLNESS: Mr. Arauz is a 67-year-old male with the above medical problems, who presented to the emergency room with bright red blood per rectum. He had 2 episodes at home, no precipitating or relieving factors, and no prior history. For this, he was placed in observation status in the hospital for further evaluation. HOSPITAL COURSE: The patient continued to pass bright red blood per rectum. However, it has slowed down, and on day of discharge, it has resolved. He overnight had some lightheadedness and dizziness and orthostatically positive. He had an increase in his IV fluids which were discontinued this morning and these symptoms have resolved. He was evaluated by Dr. Lin of Gastroenterology with recommendation for monitoring and conservative care. Because the patient's hemoglobin has remained stable, his most recent colonoscopy was reported in October of 2017, there was no indication for inpatient colonoscopy. Given the resolution of symptoms, the patient does meet criteria for discharge to home, with followup through Dr. Lin in a few weeks. The patient is overall feeling well, ambulating without difficulty, does meet criteria for discharge to home. He is aware that this may happen again, and if so to present to the emergency department for further evaluation. Should this occur again, colonoscopy will be considered by GI. The patient is on dual anti-platelet therapy secondary to a stent placed back in March of 2018. One dose of aspirin and one dose of Plavix were held, following the amount of bleeding which has resolved. He will resume both medications starting tonight with the aspirin and tomorrow with clopidogrel. He will follow up with Cardiology as previously indicated. PHYSICAL EXAMINATION: On day of discharge, please see note on chart from today. LARIOS FINDINGS AND TEST RESULTS: CBC on admission; 7.4, 13.7, 41.3. 218, hemoglobin on discharge 11.3. INR 1.0. Chemistry; 141, 3.9,109, 28, 13, 0.95, and 88. LFTs are normal. DIET: Diet is a low-fiber diet for now, transitioning back in a few days to a heart healthy diet. ACTIVITY: As tolerated. Reviewed with the patient this hospitalization, concerns that this may occur in the future, followup instructions, and seek care precautions. He demonstrates understanding. Total time coordinating discharge is 30 minutes. Job ID: [id number] MTDD
== END 2018-08-14 16:18 | disposition home or self-care (01) ==
LOC: ERS 14:54 → ERHOLD 17:12 → 2SW 18:44
PROVIDERS: ADMIT Family Medicine; ATTEND Family Medicine
DX: K57.31 Diverticulosis of large intestine without perforation or abscess with bleeding (principal); D50.0 Iron deficiency anemia secondary to blood loss (chronic); I25.10 Atherosclerotic heart disease of native coronary artery without angina pectoris; K59.00 Constipation, unspecified; K21.9 Gastro-esophageal reflux disease without esophagitis; E78.5 Hyperlipidemia, unspecified; Z86.010 Personal history of colon polyps; Z79.02 Long term (current) use of antithrombotics/antiplatelets; Z79.82 Long term (current) use of aspirin; Z79.899 Other long term (current) drug therapy; Z88.2 Allergy status to sulfonamides; Z88.8 Allergy status to other drugs, medicaments and biological substances; Z80.0 Family history of malignant neoplasm of digestive organs; Z95.5 Presence of coronary angioplasty implant and graft
CPT/HCPCS: 80048; 80053; 83735; 85014 ×2; 85018 ×2; 85025; 85049 ×2; 85610; 85730; 86850; 86900; 86901; 96360; 96361 ×2; 99285; G0378 ×2; 36415

== ENCOUNTER 2019-07-26 09:35 | Day surgery (SDC) | payer MEDICARE, BC ==
[2019-07-25 11:05] VITALS: BMI 30.7
[2019-07-26] MEDS ORDERED: Dexamethasone 20 MG/5 ML VIAL ONE (10:12)
[2019-07-26] MEDS ORDERED: Glycopyrrolate 0.2 MG/ML 5 ML SYRINGE ONE (10:12)
[2019-07-26] MEDS ORDERED: PROPOFOL 200 MG/20 ML VIAL ONE (10:12)
[2019-07-26] MEDS ORDERED: Lidocaine 1% PF 5 ML VIAL ONE (10:12)
[2019-07-26] MEDS ORDERED: Ondansetron PF 4 MG/2 ML Vial ONE (10:12)
[2019-07-26] MEDS ORDERED: Rocuronium Bromide 10 MG/ML (10ML VIAL) ONE (10:12)
[2019-07-26 10:39] LABS: #Eosinphils 0.2 thou/uL (0.0-0.7); #Lymphocytes 1.5 thou/uL (1.20-3.40); #Monocytes 0.5 thou/uL (0.11-0.59); #Neutrophils 2.4 thou/uL (1.40-6.50); %Basophils 0.8 % (0.0-1.0); %Eosinophils 3.9 % (0.0-10.0); %Lymphocytes 33.3 % (21.0-51.0); %Monocytes 9.8 % (0.0-10.0); %Neutrophils 52.3 % (42.0-75.0); Hemoglobin 14.2 g/dL (14.0-18.0); Mean Corpuscular HGB CONC 33.4 g/dL (32.0-36.0); Mean Corpuscular Hemoglobin 30.5 pg (27.0-31.0); Mean Corpuscular Volume 91.3 fL (78.0-98.0); Platelet Count 179 thou/uL (130-400); Red Blood Cell (RBC) Count 4.67 mill/uL (4.70-6.10); White Blood Cell (WBC) Count 4.6 thou/uL (4.8-10.8)
[2019-07-26 10:54] LABS: Anion Gap 7 mmol/L (10-20); BUN (Urea Nitrogen) 11 mg/dL (8.4-25.7); Calc. Creatinine Clearance 89 mL/min (70-130); Calcium 10.7 mg/dL (7.8-10.44); Carbon Dioxide 30 mmol/L (23-31); Chloride 107 mmol/L (98-107); Estimated GFR-MDRD 66; Glucose 105 mg/dL (80-115); Potassium 4.3 mmol/L (3.5-5.1); Sodium 140 mmol/L (136-145)
[2019-07-26] MEDS ORDERED: Lidocaine 2% Jelly 5 ML TUBE ONE (11:55)
[2019-07-26] MEDS ORDERED: Fentanyl 100 MCG/2 ML VIAL ONE ×2 (11:55→14:03)
[2019-07-26] MEDS ORDERED: Bupivacaine 0.25% HCL 30 ML VIAL ONE (12:32)
[2019-07-26] MEDS ORDERED: HYDROcodone/Acetaminophen 5/325 mg Tablet ONE (15:30)
--- NOTE | 2019-07-26 16:33 | OP ---
DATE OF PROCEDURE: 07/26/2019 PREOPERATIVE DIAGNOSES: 1. Skin cyst, suprapubic, 2 cm. 2. Skin cyst, 3 cm, mid back. PROCEDURES PERFORMED: 1. Excision of skin cyst, suprapubic, with no margin. 2. Removal of 3 cm skin cyst, back, with no additional margin. ANESTHESIA: General. ESTIMATED BLOOD LOSS: Minimal. COMPLICATIONS: None. SPECIMEN: Suprapubic cyst and back cyst. DESCRIPTION OF PROCEDURE: The patient was taken to the operating room and laid supine on the operating room table. After general anesthetic was obtained, suprapubic region was shaved, prepped, and draped in a sterile fashion. An elliptical incision was used to ellipse out skin over top of the palpable cyst in the suprapubic region. The cyst was removed and it was entirely intact without additional margin. The wound was irrigated and closed using 3-0 Vicryl, 4-0 Monocryl, and Dermabond. Next, the patient was placed in left lateral decubitus position and an elliptical incision was made on the back and a 3 cm cyst was removed with a 3 cm incision wide and 9 cm long incision. The cyst was removed with no additional margin, sent to Path for final diagnosis. The wound was irrigated. Meticulous hemostasis obtained. The wound was closed using 3-0 Vicryl, 4-0 Monocryl, and Dermabond. The patient was sent to Recovery in stable condition. All instrument counts, needle counts, and lap counts were correct. Job ID: [id number]
== END 2019-07-26 15:45 | disposition home or self-care (01) ==
LOC: SDC 09:35
PROVIDERS: ATTEND Surgery
PROC: 0HB7XZZ Excision of Abdomen Skin, External Approach (ICD-10-PCS; principal; 2019-07-26)
PROC: 0HB6XZZ Excision of Back Skin, External Approach (ICD-10-PCS; 2019-07-26)
DX: L72.0 Epidermal cyst (principal); Z79.02 Long term (current) use of antithrombotics/antiplatelets; Z79.899 Other long term (current) drug therapy; Z88.2 Allergy status to sulfonamides; Z88.8 Allergy status to other drugs, medicaments and biological substances
CPT/HCPCS: 36415; 80048; 85025; 88304; J0690; J1100; J2001; J2405; J2704; J3010; S0020

== ENCOUNTER 2021-08-13 14:23 | Outpatient (CLI) | payer MEDICARE | END 2021-08-13 14:24 | disposition home or self-care (01) | LOC: SCSMRI 14:23 | PROVIDERS: ATTEND Specialist | DX: M51.17 Intervertebral disc disorders with radiculopathy, lumbosacral region (principal); M43.16 Spondylolisthesis, lumbar region; M48.061 Spinal stenosis, lumbar region without neurogenic claudication; Q76.49 Other congenital malformations of spine, not associated with scoliosis | CPT/HCPCS: 70210; 72148 ==

== ENCOUNTER 2024-05-25 07:33 | Outpatient (CLI) | payer MEDICARE | END 2024-05-25 07:34 | disposition home or self-care (01) | LOC: BICCT 07:33 | PROVIDERS: ATTEND Physician Assistant Medical | DX: K22.70 Barrett's esophagus without dysplasia (principal); R10.32 Left lower quadrant pain; E78.00 Pure hypercholesterolemia, unspecified; K83.8 Other specified diseases of biliary tract; K57.30 Diverticulosis of large intestine without perforation or abscess without bleeding; K86.89 Other specified diseases of pancreas; Z87.19 Personal history of other diseases of the digestive system | CPT/HCPCS: 74177; 82565 ==